=== PATIENT | female | born 1985 | race Caucasian/White ===

== ENCOUNTER 2021-06-06 09:06 | Inpatient (IN) | payer SELFPAY ==
[2021-06-06 10:47] LABS: Hemoglobin 13.7 g/dL (12.0-15.5); Mean Corpuscular HGB CONC 32.8 g/dL (32.0-36.0); Mean Corpuscular Hemoglobin 29.2 pg (27.0-33.0); Mean Corpuscular Volume 89.1 fl (81.6-98.3); Mean Platelet Volume 9.3 fl (7.4-10.4); Platelet Count 199 10x3/uL (150-450); RBC Distribution Width 12.8 % (11.5-14.5); Red Blood Cell (RBC) Count 4.69 10x6/uL (3.90-5.03); White Blood Cell (WBC) Count 4.6 10x3/uL (3.5-10.5)
[2021-06-06 10:48] LABS: MDiff Complete? YES
[2021-06-06] MEDS ORDERED: Dexamethasone 10 MG/ML VIAL ONE (10:51)
[2021-06-06] MEDS ORDERED: Azithromycin 500 MG VIAL ONE (10:52)
[2021-06-06 11:10] LABS: ALT (SGPT) 34 U/L (8-55); AST (SGOT) 35 U/L (5-34); Alkaline Phosphatase 67 U/L (40-110); Anion Gap 14 mmol/L (10-20); BUN (Urea Nitrogen) 9 mg/dL (7.0-18.7); Bilirubin, Total 0.4 mg/dL (0.2-1.2); Calc. Creatinine Clearance 0 mL/min (70-130); Calcium 8.5 mg/dL (7.8-10.44); Carbon Dioxide 25 mmol/L (22-29); Chloride 104 mmol/L (98-107); Globulin 2.9 g/dL (2.4-3.5); Glucose 106 mg/dL (70-105); Potassium 3.9 mmol/L (3.5-5.1); Protein, Total 6.9 g/dL (6.0-8.3); Sodium 139 mmol/L (136-145)
[2021-06-06 11:11] LABS: Eosinophils 1 % (0-10); Lymphocytes 30 % (21-51); Monocytes 8 % (0-10); Neutrophil 61 % (42-75); Platelet Morphology Comment Appears Adequate
[2021-06-06 11:12] LABS: RBC Morphology Normal
[2021-06-06] MEDS ORDERED: Acetaminophen 325 MG TAB PO PRN (12:24)
[2021-06-06] MEDS ORDERED: Ondansetron ODT 4 MG TAB PO PRN (12:24)
[2021-06-06 13:48] VITALS: BMI 32.0
[2021-06-06] MEDS ORDERED: REMDESIVIR 200 MG in Sodium Chloride 0.9% 250 ML 210 ML IV SCH (14:30)
[2021-06-06] MEDS: Ventolin HFA Inhaler 60 PUFF INHALER INH SCH (20:15)
[2021-06-06] MEDS: guaiFENesin ER 600 MG TAB PO SCH (21:38)
[2021-06-07] MEDS: Ventolin HFA Inhaler 60 PUFF INHALER INH SCH ×4 (01:15→20:00)
[2021-06-07 05:10] LABS: #Monocytes 0.5 10x3/uL (0.0-1.1); #Neutrophils 1.9 10x3/uL (1.5-8.4); %Basophils 0.3 % (0.0-2.0); %Eosinophils 0.3 % (0.0-6.0); %Lymphocytes 26.2 % (18.0-47.0); %Monocytes 15.9 % (0.0-10.0); %Neutrophils 56.7 % (40.0-75.0); Mean Corpuscular HGB CONC 33.8 g/dL (32.0-36.0); Mean Corpuscular Hemoglobin 29.7 pg (27.0-33.0); Mean Corpuscular Volume 88.1 fl (81.6-98.3); Mean Platelet Volume 9.6 fl (7.4-10.4); Platelet Count 222 10x3/uL (150-450); RBC Distribution Width 12.4 % (11.5-14.5); Red Blood Cell (RBC) Count 4.37 10x6/uL (3.90-5.03); White Blood Cell (WBC) Count 3.3 10x3/uL (3.5-10.5)
[2021-06-07 05:42] LABS: Anion Gap 14 mmol/L (10-20); BUN (Urea Nitrogen) 14 mg/dL (7.0-18.7); Calc. Creatinine Clearance 155 mL/min (70-130); Calcium 8.9 mg/dL (7.8-10.44); Carbon Dioxide 22 mmol/L (22-29); Chloride 106 mmol/L (98-107); Glucose 134 mg/dL (70-105); Potassium 3.5 mmol/L (3.5-5.1); Sodium 138 mmol/L (136-145)
[2021-06-07 05:46] LABS: ALT (SGPT) 35 U/L (8-55); AST (SGOT) 35 U/L (5-34); Albumin 3.9 g/dL (3.5-5.0); Alkaline Phosphatase 74 U/L (40-110); Bilirubin, Direct 0.1 mg/dL (0.1-0.3); Bilirubin, Total 0.3 mg/dL (0.2-1.2); Protein, Total 7.4 g/dL (6.0-8.3)
[2021-06-07] MEDS: Enoxaparin Sodium 40 MG/0.4 ML SYRINGE SC SCH (09:38)
[2021-06-07] MEDS: Dexamethasone 20 MG/5 ML VIAL SLOW IVP SCH (09:38)
[2021-06-07] MEDS: guaiFENesin ER 600 MG TAB PO SCH ×2 (09:39→21:04)
[2021-06-07] MEDS: Benzonatate 100 MG CAP PO PRN (09:39)
[2021-06-07] MEDS: Zinc Sulfate 220 MG CAP PO SCH (09:39)
[2021-06-07] MEDS: Ascorbic Acid 500 mg Chewable Tablet PO SCH (09:39)
[2021-06-07] MEDS: Cholecalciferol 1,000 UNITS (25 MCG) TAB PO SCH (09:39)
[2021-06-07] MEDS: REMDESIVIR 100 MG in Sodium Chloride 0.9% 250 ML 230 ML IV SCH (14:44)
[2021-06-07] MEDS: Guaifenesin DM 100-10/5 ML UDCUP PO PRN (21:04)
[2021-06-08] MEDS: Ventolin HFA Inhaler 60 PUFF INHALER INH SCH ×4 (01:00→20:20)
[2021-06-08 05:48] LABS: #Monocytes 0.8 10x3/uL (0.0-1.1); #Neutrophils 3.8 10x3/uL (1.5-8.4); %Basophils 0.3 % (0.0-2.0); %Lymphocytes 21.5 % (18.0-47.0); %Monocytes 12.8 % (0.0-10.0); %Neutrophils 64.6 % (40.0-75.0); Hemoglobin 13.2 g/dL (12.0-15.5); Mean Corpuscular HGB CONC 33.8 g/dL (32.0-36.0); Mean Corpuscular Volume 88.6 fl (81.6-98.3); Mean Platelet Volume 9.5 fl (7.4-10.4); Platelet Count 295 10x3/uL (150-450); RBC Distribution Width 12.5 % (11.5-14.5)
[2021-06-08 05:59] LABS: Anion Gap 13 mmol/L (10-20); BUN (Urea Nitrogen) 13 mg/dL (7.0-18.7); Calc. Creatinine Clearance 162 mL/min (70-130); Calcium 9.1 mg/dL (7.8-10.44); Carbon Dioxide 21 mmol/L (22-29); Chloride 109 mmol/L (98-107); Glucose 125 mg/dL (70-105); Potassium 3.8 mmol/L (3.5-5.1); Sodium 139 mmol/L (136-145)
[2021-06-08 06:01] LABS: ALT (SGPT) 53 U/L (8-55); AST (SGOT) 47 U/L (5-34); Albumin 3.9 g/dL (3.5-5.0); Alkaline Phosphatase 65 U/L (40-110); Bilirubin, Direct 0.1 mg/dL (0.1-0.3); Bilirubin, Total 0.2 mg/dL (0.2-1.2); Protein, Total 7.3 g/dL (6.0-8.3)
[2021-06-08] MEDS: Dexamethasone 20 MG/5 ML VIAL SLOW IVP SCH (09:04)
[2021-06-08] MEDS: Enoxaparin Sodium 40 MG/0.4 ML SYRINGE SC SCH (09:04)
[2021-06-08] MEDS: Guaifenesin DM 100-10/5 ML UDCUP PO PRN ×2 (09:04→21:48)
[2021-06-08] MEDS: Cholecalciferol 1,000 UNITS (25 MCG) TAB PO SCH (09:05)
[2021-06-08] MEDS: guaiFENesin ER 600 MG TAB PO SCH ×2 (09:05→21:48)
[2021-06-08] MEDS: Benzonatate 100 MG CAP PO PRN (09:05)
[2021-06-08] MEDS: Zinc Sulfate 220 MG CAP PO SCH (09:05)
[2021-06-08] MEDS: Ascorbic Acid 500 mg Chewable Tablet PO SCH (09:05)
[2021-06-08] MEDS: REMDESIVIR 100 MG in Sodium Chloride 0.9% 250 ML 230 ML IV SCH (15:11)
[2021-06-09] MEDS: Ventolin HFA Inhaler 60 PUFF INHALER INH SCH ×4 (01:46→20:35)
[2021-06-09 04:21] LABS: #Neutrophils 4.4 10x3/uL (1.5-8.4); %Basophils 0.4 % (0.0-2.0); %Lymphocytes 20.2 % (18.0-47.0); %Monocytes 14.8 % (0.0-10.0); %Neutrophils 62.7 % (40.0-75.0); Hemoglobin 13.1 g/dL (12.0-15.5); Mean Corpuscular HGB CONC 33.5 g/dL (32.0-36.0); Mean Corpuscular Hemoglobin 29.7 pg (27.0-33.0); Mean Corpuscular Volume 88.7 fl (81.6-98.3); Mean Platelet Volume 9.4 fl (7.4-10.4); Platelet Count 331 10x3/uL (150-450); RBC Distribution Width 12.4 % (11.5-14.5); Red Blood Cell (RBC) Count 4.41 10x6/uL (3.90-5.03)
[2021-06-09 04:33] LABS: Anion Gap 16 mmol/L (10-20); BUN (Urea Nitrogen) 14 mg/dL (7.0-18.7); Calc. Creatinine Clearance 153 mL/min (70-130); Calcium 8.9 mg/dL (7.8-10.44); Carbon Dioxide 19 mmol/L (22-29); Chloride 109 mmol/L (98-107); Glucose 140 mg/dL (70-105); Potassium 3.8 mmol/L (3.5-5.1); Sodium 140 mmol/L (136-145)
[2021-06-09 04:36] LABS: ALT (SGPT) 70 U/L (8-55); AST (SGOT) 41 U/L (5-34); Albumin 3.7 g/dL (3.5-5.0); Alkaline Phosphatase 68 U/L (40-110); Bilirubin, Direct 0.1 mg/dL (0.1-0.3); Bilirubin, Total 0.2 mg/dL (0.2-1.2); Protein, Total 6.9 g/dL (6.0-8.3)
[2021-06-09] MEDS: Dexamethasone 20 MG/5 ML VIAL SLOW IVP SCH (09:13)
[2021-06-09] MEDS: Guaifenesin DM 100-10/5 ML UDCUP PO PRN ×2 (09:13→21:08)
[2021-06-09] MEDS: Enoxaparin Sodium 40 MG/0.4 ML SYRINGE SC SCH (09:13)
[2021-06-09] MEDS: Cholecalciferol 1,000 UNITS (25 MCG) TAB PO SCH (09:13)
[2021-06-09] MEDS: Zinc Sulfate 220 MG CAP PO SCH (09:14)
[2021-06-09] MEDS: guaiFENesin ER 600 MG TAB PO SCH ×2 (09:14→21:08)
[2021-06-09] MEDS: Ascorbic Acid 500 mg Chewable Tablet PO SCH (09:14)
[2021-06-09] MEDS: Benzonatate 100 MG CAP PO PRN (09:14)
[2021-06-09] MEDS: REMDESIVIR 100 MG in Sodium Chloride 0.9% 250 ML 230 ML IV SCH (13:27)
[2021-06-10] MEDS: Ventolin HFA Inhaler 60 PUFF INHALER INH SCH ×2 (01:35→09:20)
[2021-06-10 05:31] LABS: #Monocytes 1.1 10x3/uL (0.0-1.1); #Neutrophils 5.9 10x3/uL (1.5-8.4); %Basophils 0.5 % (0.0-2.0); %Lymphocytes 16.8 % (18.0-47.0); %Monocytes 12.7 % (0.0-10.0); %Neutrophils 67.5 % (40.0-75.0); Hemoglobin 13.4 g/dL (12.0-15.5); Mean Corpuscular HGB CONC 33.6 g/dL (32.0-36.0); Mean Corpuscular Volume 89.3 fl (81.6-98.3); Mean Platelet Volume 9.4 fl (7.4-10.4); Platelet Count 376 10x3/uL (150-450); RBC Distribution Width 12.4 % (11.5-14.5); Red Blood Cell (RBC) Count 4.47 10x6/uL (3.90-5.03); White Blood Cell (WBC) Count 8.7 10x3/uL (3.5-10.5)
[2021-06-10 06:45] LABS: Anion Gap 17 mmol/L (10-20); BUN (Urea Nitrogen) 14 mg/dL (7.0-18.7); Calc. Creatinine Clearance 158 mL/min (70-130); Calcium 8.8 mg/dL (7.8-10.44); Carbon Dioxide 19 mmol/L (22-29); Chloride 106 mmol/L (98-107); Glucose 147 mg/dL (70-105); Potassium 3.7 mmol/L (3.5-5.1); Sodium 138 mmol/L (136-145)
[2021-06-10 06:48] LABS: ALT (SGPT) 51 U/L (8-55); AST (SGOT) 17 U/L (5-34); Albumin 3.6 g/dL (3.5-5.0); Alkaline Phosphatase 72 U/L (40-110); Bilirubin, Direct 0.1 mg/dL (0.1-0.3); Bilirubin, Total 0.2 mg/dL (0.2-1.2); Protein, Total 6.6 g/dL (6.0-8.3)
[2021-06-10] MEDS: Zinc Sulfate 220 MG CAP PO SCH (09:42)
[2021-06-10] MEDS: Benzonatate 100 MG CAP PO PRN (09:42)
[2021-06-10] MEDS: Guaifenesin DM 100-10/5 ML UDCUP PO PRN (09:42)
[2021-06-10] MEDS: Enoxaparin Sodium 40 MG/0.4 ML SYRINGE SC SCH (09:42)
[2021-06-10] MEDS: guaiFENesin ER 600 MG TAB PO SCH (09:42)
[2021-06-10] MEDS: Ascorbic Acid 500 mg Chewable Tablet PO SCH (09:42)
[2021-06-10] MEDS: Cholecalciferol 1,000 UNITS (25 MCG) TAB PO SCH (09:42)
[2021-06-10] MEDS: Dexamethasone 20 MG/5 ML VIAL SLOW IVP SCH (09:43)
[2021-06-10 10:20] VITALS: TEMP 98.2
[2021-06-10] MEDS: REMDESIVIR 100 MG in Sodium Chloride 0.9% 250 ML 230 ML IV SCH (11:08)
[2021-06-10 12:18] VITALS: BP 135/72
== END 2021-06-10 14:22 | disposition home or self-care (01) | DRG 177 ==
LOC: CSHERS 09:06 → CSHTELE 13:04
PROVIDERS: ADMIT Family Medicine; ATTEND Physician Assistant
PROC: XW033E5 Introduction of Remdesivir Anti-infective into Peripheral Vein, Percutaneous Approach, New Technology Group 5 (ICD-10-PCS; principal; 2021-06-06)
PROC: 8E0ZXY6 Isolation (ICD-10-PCS; 2021-06-06)
DX: U07.1 COVID-19 (principal); J12.82 Pneumonia due to coronavirus disease 2019; J96.01 Acute respiratory failure with hypoxia
CPT/HCPCS: 36415; 71045; 71275; 80048; 80053; 80076; 82728; 84145; 84484; 85025; 86140; 93005; 94664; 94760; 96365; 96366; 96375; J0456; J1100; J1650; J7050

== ENCOUNTER 2021-10-14 10:05 | Emergency (ER) | payer SELFPAY, OTHER | END 2021-10-14 12:46 | disposition home or self-care (01) | LOC: CSHERS 10:05 | DX: M25.551 Pain in right hip (principal); M25.512 Pain in left shoulder; M54.50 Low back pain, unspecified; V43.62XA Car passenger injured in collision with other type car in traffic accident, initial encounter | CPT/HCPCS: 72170 ==

== ENCOUNTER 2024-01-03 23:04 | Emergency (ER) | payer OTHER, SELFPAY ==
[2024-01-03] MEDS ORDERED: Dexamethasone 10 MG/ML VIAL ONE (23:35)
== END 2024-01-04 00:05 | disposition home or self-care (01) ==
LOC: CSHERS 23:04
DX: M10.9 Gout, unspecified (principal)
CPT/HCPCS: 96372; 99283; J1100